=== PATIENT | male | born 1980 | race Caucasian/White ===

== ENCOUNTER 2022-04-26 | Emergency (ER) | payer SELFPAY ==
[~2022-04-26] VITALS: Ht 172.7 cm; Wt 90.7 kg
[2022-04-26 00:03] VITALS: BP 135/92
[2022-04-26 02:45] VITALS: BP 135/92
--- NOTE | 2022-04-26 02:45 | NUR ---
Patient discharged with v/s stable, In custody of P Written and verbal after care instructions given and explained. Patient verbalized understanding. Ambulatory with steady gait. All questions addressed prior to discharge. Advised to follow up with PMD.
== END 2022-04-26 02:45 ==
LOC: MED → EDSEX → MED 02:45
DX: S00.83XA Contusion of other part of head, initial encounter (principal); V49.88XA Car occupant (driver) (passenger) injured in other specified transport accidents, initial encounter; Y93.89 Activity, other specified; Y92.89 Other specified places as the place of occurrence of the external cause; Y99.8 Other external cause status
CPT/HCPCS: 70450; 99284